=== PATIENT | female | born 1980 | race Hispanic/Latino ===

== ENCOUNTER 2019-10-27 13:14 | Emergency (ER) | payer MEDICAID, OTHER ==
[2019-10-27] MEDS ORDERED: Acetaminophen 500 MG TAB ONE (14:01)
[2019-10-28 14:01] LABS: SARS-CoV-2 MS2 Positive; SARS-CoV-2 N Gene Negative; SARS-CoV-2 S Gene Negative; SARS-CoV-2 by NAA Not Detected (NotDetected); SARS-CoV-2 orf1ab Negative
== END 2019-10-27 15:07 | disposition home or self-care (01) ==
LOC: ERS 13:14
DX: J02.9 Acute pharyngitis, unspecified (principal); R50.9 Fever, unspecified; R05 Cough; Z20.828 Contact with and (suspected) exposure to other viral communicable diseases
CPT/HCPCS: 87635; 99283; U0003

== ENCOUNTER 2019-12-18 17:08 | Emergency (ER) | payer MEDICAID, SELFPAY ==
--- NOTE | 2019-12-18 18:41 | RAD ---
3 views left fourth toe: 12/18/2019 COMPARISON: None HISTORY: Injury, trauma, pain FINDINGS: A nondisplaced obliquely oriented fracture is suspected involving the mid/distal shaft of t he fourth proximal phalanx. This could be acute or chronic. Clinical correlation is required. Adjacent soft tissue swelling is seen, which may be inflammatory and/or posttraumatic in nature. IMPRESSION: Findings suggesting a nondisplaced fracture of the fourth proximal phalanx with associate d soft tissue swelling. Please see above discussion.
[2019-12-18] MEDS ORDERED: Naproxen 500 MG TAB ONE (18:50)
== END 2019-12-18 19:14 | disposition home or self-care (01) ==
LOC: ERS 17:08
DX: S92.512A Displaced fracture of proximal phalanx of left lesser toe(s), initial encounter for closed fracture (principal); W22.8XXA Striking against or struck by other objects, initial encounter